=== PATIENT | male | born 1965 | race Caucasian/White ===

== ENCOUNTER 2016-08-24 19:03 | Emergency (ER) | payer MEDICAID ==
[~2016-08-24] VITALS: Ht 177.8 cm; Wt 108.9 kg
[~2016-08-24 19:03] MED LIST: COLCHICINE0.6 M1 PO; INDOMETHACIN75 MG ORAL; PREDNISONE5 M4 PO
--- NOTE | 2016-08-24 20:09 | Emergency Room Report ---
History of Present Illness General Chief Complaint: Pain Present Illness HPI 41-year-old male presents emergency department complaining of pain and swelling in the left knee x2 days. Patient describes pain in the medial aspect of the left knee it does not radiate rates his pain as 8/10 in severity, and describes that it feels similar to previous gout attack that he had an alternate knee. He denies false/trauma. She denies erythema, increased temperature palpation, fevers or chills. Pt states onset of pain was after going on a walk around the block. Denies numbness tingling or loss of sensation or gross motor movements of the extremities, incontinence of bowel or bladder. Denies CP, Palpitations, LOC, AMS, dizziness, Changes in Vision, Sensation, paresthesias, or a sudden severe headache. Allergies: Coded Allergies: No Known Allergies (Unverified , 06/28/16) Patient History Past Medical History: see triage record Past Surgical History: none Pertinent Family History: none Immunizations: UTD Reviewed Nursing Documentation: PMH: Agreed, PSxH: Agreed Nursing Documentation-PMH Hx Cardiac Problems: No - GOUT Review of Systems All Other Systems: negative except mentioned in HPI Physical Exam Vital Signs Date Time Temp Pulse Resp B/P Pulse Ox O2 Delivery O2 Flow Rate FiO2 08/24/16 19:29 98.4 92 16 125/81 96 Room Air Sp02 EP Interpretation: reviewed, normal General Appearance: no apparent distress, alert, GCS 15, non-toxic Head: normocephalic, atraumatic Eyes: bilateral eye PERRL, bilateral eye normal inspection ENT: hearing grossly normal, normal pharynx, no angioedema, normal voice Neck: full range of motion, supple/symm/no masses Respiratory: chest non-tender, lungs clear, normal breath sounds, speaking full sentences Cardiovascular #1: regular rate, rhythm, no edema Cardiovascular #2: 2+ radial (R), 2+ radial (L), 2+ dorsalis pedis (R), 2+ dorsalis pedis (L) Gastrointestinal: normal bowel sounds, non tender, soft, no guarding, no rebound Rectal: deferred Genitourinary: normal inspection, no CVA tenderness Musculoskeletal: back normal, gait/station normal, normal range of motion, non- tender, no calf tenderness, other - no increased laxity upon varus or valgus stressing, negative anterior and posterior drawer signs, no pulsatile mass palpated posteriorly Neurologic: alert, oriented x3, responsive, motor strength/tone normal, sensory intact, speech normal Psychiatric: judgement/insight normal, memory normal, mood/affect normal, no suicidal/homicidal ideation Reflexes: 4+ bicep (R), 4+ bicep (L), 4+ tricep (R), 4+ tricep (L), 4+ knee (R) , 4+ knee (L) Skin: normal color, no rash, warm/dry, well hydrated Lymphatic: no adenopathy Medical Decision Making PA Attestation Dr. Maynard is my supervising Physician whom patient management has been discussed with. Diagnostic Impression: Primary Impression: Gout attack Qualified Codes: M10.9 - Gout, unspecified ER Course Pt. presents to the ED c/o Pain and swelling of Left knee x 2 days - denies hx of trauma or fall, reports hx of gout, with previous similar presentation in the right knee, and previous attack in the right ankle. - Pt. prescribed indomethacin but reports he only had 2 pills left and pain has not subsided. Ddx considered but are not limited to cellulitis, Septic joint, pseudogout fracture, d/L, gout, sprain, ligamental injury Vital signs: are WNL, pt. is afebrile H&PE are most consistent with recurrent gout attack. ORDERS: none required at this time, the diagnosis is clinical ED INTERVENTIONS: -60mg IM Toradol - D/w pt. that if symptoms persist that ligamental injury may be the cause, and that would require outpatient imaging ordered by his PCP. DISCHARGE: At this time pt. is stable for d/c to home. Will provide printed patient care instructions, and any necessary prescriptions. Care plan and follow up instructions have been discussed with the patient prior to discharge. Last Vital Signs Date Time Temp Pulse Resp B/P Pulse Ox O2 Delivery O2 Flow Rate FiO2 08/24/16 19:29 98.4 92 16 125/81 96 Room Air Disposition: HOME, SELF-CARE Condition: Stable Scripts Methylprednisolone (MEDROL) 4 Mg Tab.ds.pk 4 MG PO DAILY, #1 PACK Prov: Kathryn Hahn P.Riya. 08/24/16 Ibuprofen* (MOTRIN*) 400 Mg Tablet 400 MG ORAL THREE TIMES A DAY, #30 TAB 0 Refills Prov: Kathryn Hahn 08/24/16 Prednisone* (PREDNISONE*) 20 Mg Tablet 40 MG ORAL DAILY for 5 Days, TAB Prov: Kathryn Hahn 08/24/16 Colchicine (Colchicine) 0.6 Mg Capsule 0.6 MG PO DAILY for 5 Days, #6 CAP Prov: Kathryn Hahn 08/24/16 Patient Instructions: Gout Additional Instructions: Take medications as directed. Follow up with PCP in 3-5 days Return sooner to ED if new symptoms occur, or current symptoms become worse. Kathryn Hahn Aug 24, 2016 20:09
[2016-08-24] MEDS ORDERED: COLCHICINE0.6 M1 PO (20:15)
[2016-08-24] MEDS ORDERED: Ketorolac 60mg Inj IM ONE (20:15)
[2016-08-24] MEDS ORDERED: PREDNISONE20 MG ORAL (20:15)
[2016-08-24] MEDS ORDERED: IBUPROFEN400 MG ORAL (20:15)
[2016-08-24] MEDS ORDERED: MEDROL4 M1 PO (20:29)
[2016-08-24 20:33] VITALS: BP 129/84
[2016-08-24 20:34] VITALS: BP 125/81
== END 2016-08-24 20:34 | disposition home or self-care (01) ==
LOC: EMR 20:20
DX: M10.9 Gout, unspecified (principal)
CPT/HCPCS: 96372; 99284

== ENCOUNTER 2017-06-19 17:02 | Emergency (ER) | payer MEDICAID ==
[~2017-06-19] VITALS: Ht 175.3 cm; Wt 108.0 kg
[~2017-06-19 17:02] MED LIST changes: +IBUPROFEN400 MG ORAL; +MEDROL4 M1 PO; +PREDNISONE20 MG ORAL
[2017-06-19 17:15] VITALS: BP 129/87
--- NOTE | 2017-06-19 17:20 | Emergency Room Report ---
History of Present Illness General Chief Complaint: Pain Source: Patient, Medical Record Present Illness HPI The patient is a 51-year-old male presenting for left foot pain. He states that this began 3 days prior described as a 9/10 sharp sensation and is worse with touch and movement. He states that he has a history of gout and this feels the same for him. Pain is primarily around the ankle and states he has had gout to this area before. He denies any injury to the area. He has tried indomethacin at home which has not helped. He states the Toradol usually helps. He denies any other symptoms including fever, chills, rash, calf pain, SOB, CP Allergies: Coded Allergies: No Known Allergies (Unverified , 06/28/16) Patient History Past Medical History: see triage record Pertinent Family History: none Reviewed Nursing Documentation: PMH: Agreed, PSxH: Agreed Nursing Documentation-PMH Past Medical History: No History, Except For Hx Cardiac Problems: No - GOUT Review of Systems All Other Systems: negative except mentioned in HPI Physical Exam Vital Signs Date Time Temp Pulse Resp B/P (MAP) Pulse Ox O2 Delivery O2 Flow Rate FiO2 06/19/17 17:04 97.9 93 18 129/87 95 Room Air Sp02 EP Interpretation: reviewed, normal General Appearance: no apparent distress, alert, GCS 15, non-toxic Head: normocephalic, atraumatic Eyes: bilateral eye normal inspection, bilateral eye PERRL ENT: hearing grossly normal, normal pharynx, no angioedema, normal voice Neck: full range of motion, supple/symm/no masses Musculoskeletal: back normal, gait/station normal, decreased range of motion - L ankle, swelling - L ankle, tender - L ankle to soft touch Neurologic: alert, oriented x3, responsive, motor strength/tone normal, sensory intact, speech normal Psychiatric: judgement/insight normal, memory normal, mood/affect normal, no suicidal/homicidal ideation Skin: normal color, no rash, warm/dry, well hydrated Lymphatic: no adenopathy Medical Decision Making PA Attestation Dr. Peralta is my supervising physician. Patient management was discussed with my supervising physician Diagnostic Impression: Primary Impression: Left ankle pain Qualified Codes: M25.572 - Pain in left ankle and joints of left foot ER Course The patient is a 51-year-old male presenting for left foot pain Ddx considered include but not limited to gout, septic arthritis, sprain/strain , fracture, contusion PE: Afebrile. NAD L ankle: minimal non pitting edema. Limited AROM. Tender with soft touch. No skin changes. No warmth Xray of ankle unremarkable The patient is given IM Toradol in the ER and will be discharged home with prescription for colchicine. He will followup with his primary doctor next week as discussed. ER precautions given Other X-Ray Diagnostic Results Other X-Ray Diagnostic Results : X-Ray ordered: L ankle # of Views/Limited Vs Complete: 3 View Indication: Pain EP Interpretation: Yes PA Xray: Interpretation reviewed, by supervising MD, and agrees with findings. Interpretation: no dislocation, no soft tissue swelling, no fractures Impression: No acute disease Electronically Signed by: LINDSEY Mccoy Scribe Text I have reviewed the xray with my supervising physician and interpretation is that there are no fractures, dislocations or soft tissue swelling. Last Vital Signs Date Time Temp Pulse Resp B/P (MAP) Pulse Ox O2 Delivery O2 Flow Rate FiO2 06/19/17 17:04 97.9 93 18 129/87 95 Room Air Status: improved Disposition: HOME, SELF-CARE Condition: Improved Scripts Colchicine (COLCRYS) 0.6 Mg Tablet 0.6 MG PO TID, #10 TAB Prov: TATO OATES 06/19/17 TATO OATES Jun 19, 2017 17:20
[2017-06-19] MEDS ORDERED: Ketorolac 30mg Inj IM ONE (17:45)
[2017-06-19] MEDS ORDERED: COLCRYS0.6 M1 PO (17:58)
[2017-06-19 18:01] VITALS: BP 129/87
--- NOTE | 2017-06-20 10:29 | Diagnostic Imaging Report ---
Indication: PAIN Technique: 3 views of the left ankle Comparison: none Findings: There is lateral malleolar soft tissue swelling. Joint spaces are preserved. No acute fractures. No dislocations Impression: Lateral soft tissue swelling. No acute bony trauma
== END 2017-06-19 18:05 | disposition home or self-care (01) ==
LOC: EMR 17:15
DX: M25.572 Pain in left ankle and joints of left foot (principal); M79.89 Other specified soft tissue disorders
CPT/HCPCS: 73610; 96372; 99283; J1885

== ENCOUNTER 2017-09-22 20:36 | Emergency (ER) | payer MEDICAID ==
[~2017-09-22] VITALS: Ht 175.3 cm; Wt 106.6 kg
[~2017-09-22 20:36] MED LIST changes: +COLCRYS0.6 M1 PO
[2017-09-22 21:05] VITALS: BP 120/78
[2017-09-22] MEDS ORDERED: TAMIFLU75 MG ORAL (21:07)
[2017-09-22 21:55] VITALS: BP 122/80
[2017-09-22 22:00] VITALS: BP 122/80
--- NOTE | 2017-09-23 00:02 | Emergency Room Report ---
History of Present Illness General Chief Complaint: Fever Source: Patient Present Illness HPI 52-year-old male presents with fever, chills, cough, runny nose for 1 day. Cough is productive with clear phlegm. Pt still eating/drinking well. +sick contacts. No recent travel. No SOB, cp, abdominal pain, n/v/d. Allergies: Coded Allergies: No Known Allergies (Unverified , 06/28/16) Patient History Past Medical History: see triage record Past Surgical History: none Pertinent Family History: none Reviewed Nursing Documentation: PMH: Agreed, PSxH: Agreed Nursing Documentation-PMH Hx Cardiac Problems: No - GOUT Review of Systems All Other Systems: negative except mentioned in HPI Physical Exam Vital Signs Date Time Temp Pulse Resp B/P (MAP) Pulse Ox O2 Delivery O2 Flow Rate FiO2 09/22/17 20:44 100.2 109 18 115/74 95 Room Air Sp02 EP Interpretation: reviewed, normal General Appearance: alert, GCS 15, non-toxic, mild distress Head: normocephalic, atraumatic Eyes: bilateral eye normal inspection, bilateral eye PERRL, bilateral eye EOMI ENT: normal ENT inspection, normal pharynx, normal voice, moist mucus membranes Neck: normal inspection, full range of motion, supple Respiratory: normal inspection, lungs clear, normal breath sounds, no respiratory distress, no retraction, no wheezing, speaking full sentences, chest symmetrical Cardiovascular #1: normal inspection, regular rate, rhythm, no edema, normal capillary refill Cardiovascular #2: 2+ radial (R), 2+ radial (L) Gastrointestinal: normal inspection, non tender, soft, non-distended, no guarding Genitourinary: no CVA tenderness Musculoskeletal: normal inspection, back normal, normal range of motion, non- tender Neurologic: normal inspection, alert, oriented x3, responsive, motor strength/ tone normal, sensory intact, normal gait, speech normal Psychiatric: normal inspection, judgement/insight normal, memory normal Skin: normal inspection, normal color, no rash, warm/dry, well hydrated, normal turgor Medical Decision Making Diagnostic Impression: Primary Impression: Influenza-like illness ER Course 52-year-old male p/w fever, chills, runny nose, cough Appears non- toxic, well hydrated, tolerating PO DDX: Likely viral URI Lungs are clear Plan: Tylenol ER course: Pt stable in ED, remains nontoxic appearing, no sob, ambulating around the emergency room Disposition: Patient discharged to home with Tamiflu Patient instructed to follow up with PMD in 1 week. Also instructed to take motrin/tylenol at home. Very strict return precautions discussed with patient such as intractable fever and chills, unable to eat or drink, severe chest pain or shortness of breath. Patient verbalized understanding and agrees with plan. Please note that this Emergency Department Report was dictated using [employer] coremaker technology software, occasionally this can lead to erroneous entry secondary to interpretation by the dictation equipment Last Vital Signs Date Time Temp Pulse Resp B/P (MAP) Pulse Ox O2 Delivery O2 Flow Rate FiO2 09/22/17 20:44 100.2 109 18 115/74 95 Room Air Disposition: HOME, SELF-CARE Condition: Improved Scripts Oseltamivir Phosphate (Tamiflu) 75 Mg Capsule 75 MG ORAL TWICE A DAY for 5 Days, #10 CAP 0 Refills Prov: Ludivina Red M.D. 09/22/17 Referrals: [facility],REFERRING (PCP) Patient Instructions: Viral Respiratory Infection, [id number] Ludivina Red M.D. Sep 23, 2017 00:02
== END 2017-09-22 22:00 | disposition home or self-care (01) ==
LOC: EMR 20:50
DX: J11.1 Influenza due to unidentified influenza virus with other respiratory manifestations (principal)
CPT/HCPCS: 99283

== ENCOUNTER 2017-09-30 09:39 | Emergency (ER) | payer MEDICAID ==
[~2017-09-30] VITALS: Ht 177.8 cm; Wt 108.9 kg
[~2017-09-30 09:39] MED LIST changes: +TAMIFLU75 MG ORAL
[2017-09-30 09:50] VITALS: BP 149/90
--- NOTE | 2017-09-30 10:06 | Emergency Room Report ---
History of Present Illness General Chief Complaint: Pain Source: Patient Present Illness HPI Patient presents with bilateral ankle pain. He states this is how his gout presents. Usually affects his knees but this time both ankles are involved. Denies any fevers or chills. The pain is 8-9/10, constant and worse when dependent. He has recently got over the flu and feels that this might have precipitated the attack. Drinks alcohol on occasion. Pain is burning and pressure. No fevers. The patient had difficulty tolerating Indocin colchicine and allopurinol and the past. He had an episode of dizziness after colchicine + indocin and was concerned that that this was due to colchicine. He drove himself here and is able to ambulate with difficulty. Allergies: Coded Allergies: No Known Allergies (Unverified , 06/28/16) Patient History Social History: Reports: alcohol use Social History Narrative Thomas Reviewed Nursing Documentation: PMH: Agreed, PSxH: Agreed Nursing Documentation-PMH Hx Cardiac Problems: No - GOUT Review of Systems All Other Systems: negative except mentioned in HPI Physical Exam Vital Signs Date Time Temp Pulse Resp B/P (MAP) Pulse Ox O2 Delivery O2 Flow Rate FiO2 09/30/17 09:41 97.7 78 20 149/90 99 Room Air Sp02 EP Interpretation: reviewed, normal General Appearance: well appearing, no apparent distress, GCS 15 Head: normocephalic, atraumatic Eyes: bilateral eye normal inspection, bilateral eye PERRL ENT: hearing grossly normal, normal voice Neck: full range of motion, supple Respiratory: no respiratory distress, speaking full sentences Cardiovascular #1: normal peripheral pulses Gastrointestinal: normal inspection Musculoskeletal: normal range of motion, no calf tenderness, inflammation - ankles, swelling Neurologic: alert, oriented x3, normal gait, grossly normal Psychiatric: mood/affect normal Skin: no rash, other - no erythema of ankles Medical Decision Making Diagnostic Impression: Primary Impression: Gout attack Qualified Codes: M10.9 - Gout, unspecified ER Course Patient with h/o gout with bilateral ankle pain. DDx: gout, pseudogout, cellulitis, other arthritis amongst others. Exam against cellulitis. Will treat empirically with toradol and colchicine. As driving, limited in what other meds can be given for pain. Improved with treatment. Patient stable for outpatient observation and treatment. Last Vital Signs Date Time Temp Pulse Resp B/P (MAP) Pulse Ox O2 Delivery O2 Flow Rate FiO2 09/30/17 10:51 97.7 87 20 149/90 99 Room Air Status: improved Disposition: HOME, SELF-CARE Condition: Improved Scripts Hydrocodone Bit/Acetaminophen 5-325* (NORCO 5-325*) 1 Each Tablet 1 TAB ORAL Q6H Y for For Pain, #16 TAB 0 Refills Prov: Edouard Arambula M.D. 09/30/17 Colchicine (Colchicine) 0.6 Mg Capsule 0.6 MG PO Q6HR Y for gout pain, #30 CAP Prov: Edouard Arambula M.D. 09/30/17 Indomethacin (INDOCIN) 25 Mg/5 Ml Oral.susp 50 MG PO TID Y for pain and inflammation, #20 ML 1 Refill Prov: Edouard Arambula M.D. 09/30/17 Referrals: [facility],REFERR[facility] (PCP) Edouard Arambula M.D. Sep 30, 2017 10:05
[2017-09-30] MEDS ORDERED: Ketorolac 60mg Inj IM ONE (10:15)
[2017-09-30 10:51] VITALS: BP 149/90
[2017-09-30] MEDS ORDERED: NORCO 5-325 TA1 EACH ORAL (11:04)
[2017-09-30] MEDS ORDERED: INDOCIN25 MG/5 ML PO (11:04)
[2017-09-30] MEDS ORDERED: COLCHICINE0.6 M1 PO (11:04)
== END 2017-09-30 11:15 | disposition home or self-care (01) ==
LOC: EMR 09:56
DX: M10.9 Gout, unspecified (principal)
CPT/HCPCS: 96372; 99284

== ENCOUNTER 2018-08-25 14:47 | Emergency (ER) | payer MEDICAID ==
[~2018-08-25] VITALS: Ht 175.3 cm; Wt 104.3 kg
[~2018-08-25 14:47] MED LIST changes: +INDOCIN25 MG/5 ML PO; +NORCO 5-325 TA1 EACH ORAL
[2018-08-25 15:03] VITALS: BP 112/65
--- NOTE | 2018-08-25 15:03 | NUR ---
ED Nurse Note: Pt came in from home due to coughing with congestion x 3-4 weeks, now also complains of body ache 5/10 justin. Will cont to monitor.
[2018-08-25] MEDS ORDERED: Acetaminophen 500mg (ES) tab ORAL ONE (15:30)
[2018-08-25] MEDS ORDERED: Benzonatate 100mg Perles ORAL ONE (15:30)
--- NOTE | 2018-08-25 15:31 | Emergency Room Report ---
History of Present Illness General Chief Complaint: Upper Respiratory Illness Source: Patient (Baldemar Ann) Present Illness HPI 53-year-old male patient presents the ER complaining of cough with sputum for the past 4 weeks. Reports sore throat during this time. Denies recent travel. Denies calf pain. Denies contacts with similar symptoms. Denies vomiting. Denies chest pain. Denies history of MD. Denies history of asthma. Denies smoking cigarettes. Denies fever, chest pain, shortness of breath. Reports cough is worse at night. States has been using ibuprofen, states has not taken any other medication for relief of symptoms. (Baldemar Ann) Allergies: Coded Allergies: No Known Allergies (Unverified , 06/28/16) Patient History Past Medical History: see triage record Reviewed Nursing Documentation: PMH: Agreed; PSxH: Agreed (Baldemar Ann) Nursing Documentation-PMH Past Medical History: No History, Except For Hx Cardiac Problems: No - GOUT, OSTEOARTHRITIS (Baldemar Ann) Review of Systems All Other Systems: negative except mentioned in HPI (Baldemar Ann) Physical Exam Vital Signs Date Time Temp Pulse Resp B/P (MAP) Pulse Ox O2 Delivery O2 Flow Rate FiO2 08/25/18 14:56 98.2 69 20 112/65 94 Room Air Sp02 EP Interpretation: reviewed, normal General Appearance: well appearing, no apparent distress, alert, GCS 15, non- toxic Head: normocephalic, atraumatic Eyes: bilateral eye normal inspection, bilateral eye PERRL ENT: hearing grossly normal, normal pharynx, no angioedema, normal voice, uvula midline, moist mucus membranes Neck: full range of motion Respiratory: lungs clear, normal breath sounds, no rhonchi, no respiratory distress, no accessory muscle use, no wheezing, speaking full sentences Cardiovascular #1: regular rate, rhythm, no edema Musculoskeletal: back normal, digits/nails normal, gait/station normal, normal range of motion, non-tender Neurologic: alert, oriented x3, responsive, motor strength/tone normal, sensory intact Psychiatric: mood/affect normal Skin: no rash (Baldemar Ann) Medical Decision Making PA Attestation Dr. Arambula is my supervising Physician whom patient management has been discussed with. (Baldemar Ann) Diagnostic Impression: Primary Impression: Atypical pneumonia ER Course Pt presents to ED c/o cough x1 month. DDX considered but are not limited to influenza, viral URI, pneumonia, strep throat, rhinitis, sinusitis, otitis media, otitis externa. VITAL SIGNS are WNL, patient is afebrile. ER COURSE: Provided with cough medication in the ER. Lungs clear to auscultation, no wheezes, rhonci or rales. patient afebrile. CXR shows no acute disease, no consolidation, however due to length of symptoms , will provide patient with antibiotics and treat for atypical pneumonia. Symptomatic treatment. drink plenty of fluids. Salt water gargles for sore throat. Followup with PCP for further treatment and/or referral as needed. ER precautions given. DISCHARGE: -Rx given for Azithromycin -Rx given for Tylenol/Acetaminophen -Rx given for Tessalon perle At this time pt is stable for d/c to home. Patient is resting comfortably, in no acute distress, nontoxic appearing. Patient to take medications as instructed Will provide with patient care instructions and any necessary prescriptions. Care plan and follow-up instructions provided. Patient instructed to follow-up with primary care provider in 3 - 5 days. Patient questions asked and answered. Patient reports understanding and agreement to treatment plan. ER precautions given. Patient instructed to return to ER immediately for any new or worsening of symptoms including but not limited to increasing SOB, persistent fever, intractable vomiting. - Please note that this Emergency Department Report was dictated using [employer] Like[employer]rical panel builder technology software, occasionally this can lead to erroneous entry secondary to interpretation by the dictation equipment. (Baldemar Ann.Yanick) Chest X-Ray Diagnostic Results Chest X-Ray Diagnostic Results : Chest X-Ray Ordered: Yes # of Views/Limited/Complete: 1 View Indication: Chest Pain EP Interpretation: Yes PA Xray: Interpretation reviewed, by supervising MD, and agrees with findings. Interpretation: no consolidation, no effusion, no pneumothorax, no acute cardiopulmonary disease Impression: No acute disease PA Scribe Text Ashish Ann PA-C (Baldemar [email or web address]) Chest X-Ray Diagnostic Results : Electronically Signed by: RIVERA documentation of Xray reviewed by me and is accurate, Edouard Arambula MD (Edouard Arambula MD) Last Vital Signs Date Time Temp Pulse Resp B/P (MAP) Pulse Ox O2 Delivery O2 Flow Rate FiO2 08/25/18 15:03 98.2 69 20 112/65 94 Room Air Status: improved (Baldemar Ann) Disposition: HOME, SELF-CARE Condition: Stable Scripts Benzonatate* (TESSALON PERLE*) 100 Mg Capsule 100 MG ORAL THREE TIMES A DAY, #20 PERLE Prov: Baldemar Ann 08/25/18 Acetaminophen* (TYLENOL EXTRA STRENGTH*) 500 Mg Tablet 500 MG ORAL Q8H PRN for Prn Headache/Temp > 101, #30 TAB 0 Refills Prov: Baldemar Ann 08/25/18 Azithromycin* (ZITHROMAX*) 250 Mg Tablet 250 MG ORAL DAILY, #6 TAB 0 Refills Take two tables once daily for 1 day, then one tablet once daily for 4 days. Prov: Baldemar Ann 08/25/18 Patient Instructions: Community-Acquired Pneumonia, Adult, [id number] Additional Instructions: Followup with primary care provider in 3 -5 days. Take medications as directed. Patient questions asked and answered. ER precautions given, patient instructed to return to ER immediately for any new or worsening of symptoms. Baldemar Ann Aug 25, 2018 15:31 Edouard Arambula MD Aug 27, 2018 05:33
--- NOTE | 2018-08-25 16:03 | Diagnostic Imaging Report ---
Indication: Chest pain Comparison: None A single view chest radiograph was obtained. Findings: Cardiomediastinal appearance is within normal limits for age. Hiatal hernia is suspected with a convex density noted medial left lung base. The lungs are clear. Pulmonary vascularity is appropriate. The diaphragmatic contour is smooth and costophrenic angles are sharp. No pleural effusions are identified. The bones are unremarkable. Impression: No acute findings
[2018-08-25] MEDS ORDERED: TESSALON PERLE100 MG ORAL (16:10)
[2018-08-25] MEDS ORDERED: ZITHROMAX250 MG ORAL (16:10)
[2018-08-25] MEDS ORDERED: TYLENOL EXTRA500 MG ORAL (16:10)
[2018-08-25 16:26] VITALS: BP 135/85
--- NOTE | 2018-08-25 16:27 | NUR ---
ED Nurse Note: Discharge instructions given to pt. Answered all questions. Verbalized understanding. A + O x4. Ambulatory. ID band and Iv site removed. Left with all belongings. Left ER w/ steady gait.
== END 2018-08-25 16:16 | disposition home or self-care (01) ==
LOC: EMR 16:03
DX: J18.9 Pneumonia, unspecified organism (principal)
CPT/HCPCS: 71045; 99283

== ENCOUNTER 2018-08-28 14:22 | Emergency (ER) | payer MEDICAID ==
[~2018-08-28] VITALS: Ht 175.3 cm; Wt 104.3 kg
[~2018-08-28 14:22] MED LIST changes: +TESSALON PERLE100 MG ORAL; +TYLENOL EXTRA500 MG ORAL; +ZITHROMAX250 MG ORAL
[2018-08-28 14:30] VITALS: BP 114/68
--- NOTE | 2018-08-28 14:40 | NUR ---
ED Nurse Note: Pt from home, a&ox4 and ambulatory. Pt c/o throat/ right neck/ right side of jaw pain /. VS taken and stable. Pt states he was here in ER a few days ago with diagnosis of PNA and has been compliant with his Z-pack antibiotics. Will contiue to monitor and carry out MD's orders.
--- NOTE | 2018-08-28 14:56 | Emergency Room Report ---
History of Present Illness General Chief Complaint: Upper Respiratory Illness Source: Patient Present Illness [facility] Patient re-presents to the emergency department while being treated for atypical pneumonia diagnosed 08/25. He's on a Z-Maninder at this time and doesn't feel any better. He still has a productive cough. This morning he also woke up with left jaw pain and neck pain. He didn't take any medicine to make the pain better, but he did take some aspirin worried about his heart. He is a former smoker. He has slight amount of diarrhea after taking the first double dose of azithromycin. This has gotten better. He denies any chest pain. The cough is keeping him awake at night. He states he's taking Tessalon Perles also doesn't have any specific cough medicine at this time. He's never used an inhaler before. The patient has a history of gout. A week ago he started taking colchicine. Also he has Indocin which he took in the beginning. No calf pain, edema rashes. The pain is improved. No headaches or anxiety. Allergies: Coded Allergies: No Known Allergies (Unverified , 06/28/16) Patient History Past Medical History: see triage record Social History: Reports: alcohol use - Not recent; Denies: smoking - Former Social History Narrative Unemployed Reviewed Nursing Documentation: PMH: Agreed; PSxH: Agreed Nursing Documentation-PMH Past Medical History: No History, Except For Hx Cardiac Problems: No - GOUT, OSTEOARTHRITIS Hx Hypertension: No Hx Pacemaker: No Hx Asthma: No Hx COPD: No Hx Diabetes: No Hx Cancer: No Hx Gastrointestinal Problems: No Hx Dialysis: No History Of Psychiatric Problem: No Hx Neurological Problems: No Hx Cerebrovascular Accident: No Hx Seizures: No Review of Systems All Other Systems: negative except mentioned in HPI Physical Exam Vital Signs Date Time Temp Pulse Resp B/P (MAP) Pulse Ox O2 Delivery O2 Flow Rate FiO2 08/28/18 14:29 97.9 87 16 118/77 97 Room Air Sp02 EP Interpretation: reviewed, normal General Appearance: well appearing, no apparent distress, GCS 15 Head: normocephalic Eyes: bilateral eye normal inspection, bilateral eye PERRL ENT: normal pharynx, moist mucus membranes, other - No TMJ Neck: supple Respiratory: chest non-tender, lungs clear, normal breath sounds, other - Posttussive wheezes Cardiovascular #1: regular rate, rhythm, no edema Cardiovascular #2: 2+ radial (R) Gastrointestinal: normal inspection, normal bowel sounds, non tender, no mass, non-distended, overweight Musculoskeletal: back normal, gait/station normal, normal range of motion, no calf tenderness Neurologic: alert, oriented x3, grossly normal Psychiatric: mood/affect normal Skin: normal inspection, warm/dry Medical Decision Making Diagnostic Impression: Primary Impression: Jaw pain Additional Impressions: Bronchospasm Bronchitis ER Course Patient presents with left jaw and neck pain while being treated for pneumonia. Differential includes a cardiac pain, pneumothorax, muscle strain from coughing, referred pain from lung infection amongst others. Based on vital signs and physical exam pulmonary embolus is unlikely. Evaluation will be with EKG, chest x-ray. The patient will be treated with albuterol and Atrovent and [place]. EKG without injury. Chest x-ray no infiltrates. Patient improved after breathing treatments. Discussed how to use inhaler. The jaw pain is still present but improved. The patient was advised to continue the azithromycin. Considerations for steroid use however the patient's improved at this time. Patient stable for outpatient observation and treatment EKG Diagnostic Results Rate: normal Rhythm: NSR ST Segments: no acute changes Rhythm Strip Diag. Results EP Interpretation: yes Rhythm: NSR, no PVC's, no ectopy Chest X-Ray Diagnostic Results Chest X-Ray Diagnostic Results : Chest X-Ray Ordered: Yes # of Views/Limited/Complete: 1 View Indication: Other Interpretation: no consolidation, no effusion, no pneumothorax Impression: No acute disease Electronically Signed by: Electronically signed by Edouard Arambula MD Last Vital Signs Date Time Temp Pulse Resp B/P (MAP) Pulse Ox O2 Delivery O2 Flow Rate FiO2 08/28/18 16:32 98.0 82 19 116/80 96 Room Air 08/28/18 16:24 21 Status: improved Disposition: HOME, SELF-CARE Condition: Improved Scripts Guaifenesin/Codeine Phos* (ROBITUSSIN AC*) 118 Ml Liquid 5 ML ORAL Q6H PRN for For Cough, #90 ML 0 Refills Prov: Edouard Arambula MD 08/28/18 Colchicine (Colchicine) 0.6 Mg Capsule 0.6 MG PO BID PRN for gout pain, #20 CAP Prov: Edouard Arambula MD 08/28/18 Albuterol Sulfate* (ALBUTEROL SULFATE MDI*) 8.5 Gm Hfa.aer.ad 2 PUFF INH Q6H, #1 EA 0 Refills Prov: Edouard Arambula MD 08/28/18 Edouard Arambula MD Aug 28, 2018 14:56
[2018-08-28] MEDS ORDERED: Albuterol ud Inhalation HHN ONE (15:00)
[2018-08-28] MEDS ORDERED: Ipratropium 0.02% Inh Soln 2.5ml UD HHN ONE (15:00)
[2018-08-28] MEDS ORDERED: Norco 5mg/325mg tab ORAL ONE (15:00)
--- NOTE | 2018-08-28 15:53 | Diagnostic Imaging Report ---
EXAM: XR Chest, 1 View CLINICAL HISTORY: PAIN TECHNIQUE: Frontal view of the chest. COMPARISON: Chest x-rays dated 4 08/25/18 FINDINGS: Lungs: Unremarkable. The lungs appear clear. No focal consolidation. Pleural space: Unremarkable. The costophrenic angles are sharp. No visible pneumothorax. Heart: Unremarkable. No cardiomegaly. Mediastinum: Possible small hiatal hernia. Bones/joints: Unremarkable. Tubes, lines and devices: EKG leads overlie the thorax. IMPRESSION: 1. Possible small hiatal hernia. 2. Otherwise no acute findings.
[2018-08-28] MEDS ORDERED: ALBUTEROL SULF8.5 GM INH (16:07)
[2018-08-28] MEDS ORDERED: COLCHICINE0.6 M1 PO (16:07)
[2018-08-28] MEDS ORDERED: GUAIFENESIN-CO118 M1 ORAL (16:07)
[2018-08-28 16:32] VITALS: BP 116/80
== END 2018-08-28 16:34 | disposition home or self-care (01) ==
LOC: EMR 15:13
DX: R68.84 Jaw pain (principal); J20.9 Acute bronchitis, unspecified; M54.2 Cervicalgia; M19.90 Unspecified osteoarthritis, unspecified site
CPT/HCPCS: 71045; 93005; 94640; 99284

== ENCOUNTER 2019-04-30 21:02 | Emergency (ER) | payer MEDICAID ==
[~2019-04-30] VITALS: Ht 175.3 cm; Wt 104.3 kg
[~2019-04-30 21:02] MED LIST changes: +ALBUTEROL SULF8.5 GM INH; +GUAIFENESIN-CO118 M1 ORAL
[2019-04-30 21:08] VITALS: BP 111/66
--- NOTE | 2019-04-30 21:10 | NUR ---
ED Nurse Note: Pt ambulated to ED from home c/o two small bug bites on stomach that burn and itch since 2 days ago. Pt also reports dizziness and near syncope earlier today, VSS, A&Ox4
--- NOTE | 2019-04-30 21:26 | Emergency Room Report ---
History of Present Illness General Chief Complaint: Skin Rash/Abscess Source: Patient Present Illness HPI The patient presents with 2 problems. The main complaint initially was about possible spider bites on his abdomen. They have spiders at their house. He is not sure when his last tetanus was. They are itching and. They are not tender. He denies any fevers or chills. The second problem is that he took a hit off of cannabis vape stick at dinner. He felt dizziness and that he was about to pass out. He is feeling somewhat better now. He is never had a reaction like that before. He had some shortness of breath during that time. There is no chest pain or palpitations. Denies nausea, vomiting or diarrhea. He denies any diabetes, hypertension. Also denies smoking. Allergies: Coded Allergies: No Known Allergies (Unverified , 06/28/16) Patient History Past Medical History: see triage record Social History: Reports: drug use; Denies: smoking Social History Narrative With significant other Reviewed Nursing Documentation: PMH: Agreed; PSxH: Agreed Nursing Documentation-PMH Past Medical History: No History, Except For Hx Cardiac Problems: No - GOUT, OSTEOARTHRITIS Hx Hypertension: No Hx Pacemaker: No Hx Asthma: No Hx COPD: No Hx Diabetes: No Hx Cancer: No Hx Gastrointestinal Problems: No Hx Dialysis: No Hx Neurological Problems: No Hx Cerebrovascular Accident: No Hx Seizures: No Review of Systems All Other Systems: negative except mentioned in HPI Physical Exam Vital Signs Date Time Temp Pulse Resp B/P (MAP) Pulse Ox O2 Delivery O2 Flow Rate FiO2 04/30/19 21:05 97.7 97 18 111/66 (81) 95 Room Air Sp02 EP Interpretation: reviewed, normal General Appearance: well appearing, no apparent distress, GCS 15 Head: normocephalic Eyes: bilateral eye PERRL, bilateral eye Scleral Injection ENT: moist mucus membranes Neck: supple Respiratory: chest non-tender, lungs clear, normal breath sounds Cardiovascular #1: regular rate, rhythm Cardiovascular #2: 2+ radial (R) Gastrointestinal: normal inspection, normal bowel sounds, non tender, no mass, non-distended, overweight Musculoskeletal: back normal, gait/station normal, normal range of motion Neurologic: alert, oriented x3, bread slicer machine III-XII nml as tested, motor strength/tone normal, sensory intact, cerebellar normal, normal gait, speech normal Psychiatric: mood/affect normal Skin: other - 2 raised lesions L mid abdomen with minimal erythema Medical Decision Making Diagnostic Impression: Primary Impression: Near syncope Additional Impressions: Bug bite Qualified Codes: W57.XXXA - Bitten or stung by nonvenomous insect and other nonvenomous arthropods, initial encounter Dehydration Adverse reaction to cannabis Qualified Codes: T40.7X5A - Adverse effect of cannabis (derivatives), initial encounter ER Course Presents with 2 problems. 1 is spider bites on his abdomen. There is no evidence of cellulitis. The second is a reaction to cannabis vapor stick. As he almost passed out the patient needs to have an EKG and a chest x-ray performed particular light of the fact that there is some adverse reactions to the cannabis sticks at this time. His risk factors cardiac umana are nil. EKG normal. CXR normal. Orthostatic performed. Some increase in pulse with minimal low BP. Advised patient of dehydration being a factor. He feels well at this time and there is no apparent medical emergency at this time. Discussed local treatment of spider bites. Also cautioned about using vape sticks. Patient stable for outpatient observation and treatment. EKG Diagnostic Results Rate: normal Rhythm: NSR ST Segments: no acute changes Rhythm Strip Diag. Results EP Interpretation: yes Rhythm: NSR, no PVC's, no ectopy Chest X-Ray Diagnostic Results Chest X-Ray Diagnostic Results : Chest X-Ray Ordered: Yes # of Views/Limited/Complete: 1 View Indication: Other EP Interpretation: Yes Interpretation: no consolidation, no effusion, no pneumothorax Impression: No acute disease Electronically Signed by: Electronically signed by Edouard Arambula MD Last Vital Signs Date Time Temp Pulse Resp B/P (MAP) Pulse Ox O2 Delivery O2 Flow Rate FiO2 04/30/19 22:40 97.7 80 18 111/66 95 Room Air Status: improved Disposition: HOME, SELF-CARE Condition: Improved Scripts Hydrocortisone/Aloe Vera 1%* (HYDROCORTISONE-ALOE 1% CREAM*) Y Cr 1 APPLIC TOPIC BID PRN for Itching, #20 GM Prov: Edouard Arambula MD 04/30/19 Bacitracin (Bacitracin) 28.4 Gm Oint...g. 1 APPLIC TOPIC BID, #14 GM Prov: Edouard Arambula MD 04/30/19 Edouard Arambula MD Apr 30, 2019 21:26
[2019-04-30] MEDS ORDERED: Neosporin Oint Ud Pkt TOPIC ONE (21:30)
[2019-04-30] MEDS ORDERED: Tetanus/Diptheria/Pertussis IM ONE (21:30)
[2019-04-30 21:45] VITALS: BP_SYST 103; BP_SYST 93; BP_SYST 95; BP_DIAS 58; BP_DIAS 62; BP_DIAS 68
[2019-04-30] MEDS ORDERED: BACITRACIN15 GM TOPIC (22:13)
[2019-04-30] MEDS ORDERED: HYDROCORTISONE-30 GM TOPIC (22:13)
--- NOTE | 2019-04-30 22:20 | Diagnostic Imaging Report ---
EXAM: XR Chest, 1 View CLINICAL HISTORY: SYNCOPE TECHNIQUE: Frontal view of the chest. COMPARISON: 08/28/18 chest radiography FINDINGS: Lungs: Unremarkable. No consolidation. Pleural space: Unremarkable. No pneumothorax. Heart: Unremarkable. No cardiomegaly. Mediastinum: Hiatal hernia suspected. Bones/joints: Unremarkable. IMPRESSION: No acute cardiopulmonary disease.
[2019-04-30 22:40] VITALS: BP 111/66
--- NOTE | 2019-04-30 22:40 | NUR ---
ED Discharge Note: PRESCRIPTIONS AND DISCHARGE PAPERWORK EXPLAINED TO PT. PT VERBALIZES UNDERSTANDING AND ALL QUESTIONS ANSWERED. PRESCRIPTIONS AND DISCHARGE PAPERWORK GIVEN TO PT AND ID WRISTBAND REMOVED. PT WALKED OUT OF ER WITH STEADY GAIT AND ALL BELONGINGS
--- NOTE | 2019-05-01 15:15 | Cardiology Report ---
APPROVED REPORT EKG Measurement Heart [id number] Normal sinus rhythm Normal ECG
== END 2019-04-30 22:40 | disposition home or self-care (01) ==
LOC: EMR 21:39
DX: S30.861A Insect bite (nonvenomous) of abdominal wall, initial encounter (principal); T40.7X5A Adverse effect of cannabis (derivatives), initial encounter; R55 Syncope and collapse; E86.0 Dehydration; Z23 Encounter for immunization; M19.90 Unspecified osteoarthritis, unspecified site; M10.9 Gout, unspecified; W57.XXXA Bitten or stung by nonvenomous insect and other nonvenomous arthropods, initial encounter; Y92.9 Unspecified place or not applicable
CPT/HCPCS: 71045; 90471; 90715; 93005; 99283

== ENCOUNTER 2019-06-10 09:44 | Emergency (ER) | payer MEDICAID ==
[~2019-06-10] VITALS: Ht 175.3 cm; Wt 104.3 kg
[~2019-06-10 09:44] MED LIST changes: +BACITRACIN15 GM TOPIC; +CIPRO500 MG PO; +HYDROCODON-ACE1 EA15 ORAL; +HYDROCORTISONE-30 GM TOPIC
--- NOTE | 2019-06-10 09:57 | NUR ---
ED Nurse Note: Patient walked in ED from home. AOx4, no respiratory distress noted on room air. C/o gout flare up with left knee pain 10/. Pt noted to be in crutches. States he was prescribed prednisone 40mg but no relief. Pt also states he is taking ciprofloxacin orally for diverticulitis. ERMD at bedside.
[2019-06-10 10:01] VITALS: BP 120/84
--- NOTE | 2019-06-10 10:15 | NUR ---
ED Nurse Note: Pt placed on hospital gown. No visible swelling/redness noted on left knee. IV insertion tolerated, blood drawn and sent down to lab. Will continue to monitor.
--- NOTE | 2019-06-10 10:25 | Emergency Room Report ---
History of Present Illness General Chief Complaint: Pain Source: Patient, Medical Record Present Illness HPI Patient presents with left knee pain. He has a history of gout. He is been off of indomethacin. He is also been taking antibiotics. Antibiotics were for treatment of diverticulitis. He has 1 more day of antibiotics. He was evaluated 2 days ago and given [place] but no other medication. He was advised not to take indomethacin because he was taking antibiotics. The knee is not swollen the pain is more medial. He does not think he twisted it. It feels like his gout is out of control. In the past taking steroids his helped him and give him great relief. He rates the pain 10/10, aching and pressure. Is not radiating. It somewhat worse when he stands on the knee. He has been using crutches. He states that in the past when he was taking allopurinol the gout has worsened. He states the diverticulitis is improved and not a problem at this time. Patient evaluated recently for near syncope. No sore throat, chest pain, palpitations, nausea, vomiting, diarrhea, dysuria, shortness of breath, rashes, depression, anxiety, visual changes, headache. Allergies: Coded Allergies: No Known Allergies (Unverified , 06/28/16) Patient History Past Medical History: see triage record Social History: Reports: drug use; Denies: smoking Social History Narrative From home Reviewed Nursing Documentation: PMH: Agreed; PSxH: Agreed Nursing Documentation-PMH Past Medical History: No History, Except For Hx Cardiac Problems: No - GOUT, OSTEOARTHRITIS, DIVERTICULITIS Hx Hypertension: No Hx Pacemaker: No Hx Asthma: No Hx COPD: No Hx Diabetes: No Hx Cancer: No Hx Gastrointestinal Problems: No Hx Dialysis: No Hx Neurological Problems: No Hx Cerebrovascular Accident: No Hx Seizures: No Review of Systems All Other Systems: negative except mentioned in HPI Physical Exam Vital Signs Date Time Temp Pulse Resp B/P (MAP) Pulse Ox O2 Delivery O2 Flow Rate FiO2 06/10/19 09:48 97.7 86 18 120/84 (96) 96 Room Air Sp02 EP Interpretation: reviewed, normal General Appearance: well appearing, no apparent distress, GCS 15 Head: normocephalic Eyes: bilateral eye normal inspection, bilateral eye PERRL ENT: moist mucus membranes Neck: full range of motion, supple Respiratory: chest non-tender, lungs clear, normal breath sounds Cardiovascular #1: regular rate, rhythm Gastrointestinal: normal inspection, non tender Genitourinary: no CVA tenderness Musculoskeletal: tenderness - Medial left knee, ligaments stable, minimal to no effusion, no warmth or erythema Neurologic: alert, oriented x3, grossly normal Psychiatric: mood/affect normal Skin: normal color, no rash, warm/dry Medical Decision Making Diagnostic Impression: Primary Impression: Left knee pain Qualified Codes: M25.562 - Pain in left knee Additional Impression: Gout Qualified Codes: M10.9 - Gout, unspecified ER Course Patient presents with increased left knee pain with history of gout. Differential includes gout, pseudogout, sprain amongst others. Clinically there is no infection in the knee. X-rays are not indicated at this time. The patient will be evaluated with labs and given a dose of colchicine. We may treat him with methylprednisolone also. Labs unremarkable with normal uric acid. Patient given a dose of Solu-Medrol as pain was still present. Discussed results with patient. Discussed the need for outpatient follow-up with his physicians. Pain resolved with Solu-Medrol. Patient stable for outpatient observation and treatment. Laboratory Tests Test 06/10/19 10:10 White Blood Count 9.5 K/UL (4.8-10.8) Red Blood Count 4.67 M/UL (4.70-6.10) L Hemoglobin 14.2 G/DL (14.2-18.0) Hematocrit 41.4 % (42.0-52.0) L Mean Corpuscular Volume 89 FL (80-99) Mean Corpuscular Hemoglobin 30.4 PG (27.0-31.0) Mean Corpuscular Hemoglobin Concent 34.2 G/DL (32.0-36.0) Red Cell Distribution Width 11.9 % (11.6-14.8) Platelet Count 465 K/UL (150-450) H Mean Platelet Volume 5.2 FL (6.5-10.1) L Neutrophils (%) (Auto) 73.3 % (45.0-75.0) Lymphocytes (%) (Auto) 20.8 % (20.0-45.0) Monocytes (%) (Auto) 4.4 % (1.0-10.0) Eosinophils (%) (Auto) 0.4 % (0.0-3.0) Basophils (%) (Auto) 1.1 % (0.0-2.0) Sodium Level 141 MMOL/L (136-145) Potassium Level 3.7 MMOL/L (3.5-5.1) Chloride Level 104 MMOL/L (98-107) Carbon Dioxide Level 29 MMOL/L (21-32) Anion Gap 8 mmol/L (5-15) Blood Urea Nitrogen 14 mg/dL (7-18) Creatinine 0.9 MG/DL (0.55-1.30) Estimate Glomerular Filtration Rate > 60 mL/min (>60) Glucose Level 128 MG/DL (74-106) H Uric Acid 6.3 MG/DL (2.6-7.2) Calcium Level 9.7 MG/DL (8.5-10.1) Total Bilirubin 0.2 MG/DL (0.2-1.0) Aspartate Amino Transferase (AST) 10 U/L (15-37) L Alanine Aminotransferase (ALT) 34 U/L (12-78) Alkaline Phosphatase 64 U/L (46-116) Total Protein 8.0 G/DL (6.4-8.2) Albumin 3.9 G/DL (3.4-5.0) Globulin 4.1 g/dL Albumin/Globulin Ratio 1.0 (1.0-2.7) Last Vital Signs Date Time Temp Pulse Resp B/P (MAP) Pulse Ox O2 Delivery O2 Flow Rate FiO2 06/10/19 14:20 98.1 84 18 128/88 98 Room Air Status: improved Disposition: HOME, SELF-CARE Condition: Improved Scripts Colchicine (Colchicine) 0.6 Mg Capsule 0.6 MG PO BID, #20 CAP Prov: Edouard Arambula MD 06/10/19 Methylprednisolone (Methylprednisolone*) 4MG Dspk 4 MG ORAL DIRECTED for 6 Days, #21 EA 0 Refills Day 1: Two tablets before breakfast, one after lunch, one after dinner, and two at bedtime. If started late in the day, take all six tablets at once or divide into two or three doses, unless otherwise directed by prescriber. Day 2: One tablet before breakfast, one after lunch, one after dinner, and two at bedtime Day 3: One tablet before breakfast, one after lunch, one after dinner, and one at bedtime Day 4: One tablet before breakfast, one after lunch, and one at bedtime Day 5: One tablet before breakfast and one at bedtime Day 6: One tablet before breakfast Prov: Edouard Arambula MD 06/10/19 Referrals: NON PHYSICIAN (PCP) Edouard Arambula MD Jun 10, 2019 10:25
[2019-06-10 10:27] LABS: BASOPHILS % (AUTO) 1.1 % (0.0-2.0); EOSINOPHILS % (AUTO) 0.4 % (0.0-3.0); HEMATOCRIT 41.4 % (42.0-52.0); HEMOGLOBIN 14.2 G/DL (14.2-18.0); LYMPHOCYTES % (AUTO) 20.8 % (20.0-45.0); MEAN CORPUSCULAR VOLUME 89 FL (80-99); MONOCYTES % (AUTO) 4.4 % (1.0-10.0); NEUTROPHILS % (AUTO) 73.3 % (45.0-75.0); PLATELET COUNT 465 K/UL (150-450); RED BLOOD COUNT 4.67 M/UL (4.70-6.10); RED CELL DISTRIBUTION WIDTH 11.9 % (11.6-14.8); WHITE BLOOD COUNT 9.5 K/UL (4.8-10.8)
[2019-06-10 10:39] LABS: ANION GAP 8 mmol/L (5-15); BLOOD UREA NITROGEN 14 mg/dL (7-18); CALCIUM 9.7 MG/DL (8.5-10.1); CARBON DIOXIDE 29 MMOL/L (21-32); CHLORIDE 104 MMOL/L (98-107); CREATININE 0.9 MG/DL (0.55-1.30); POTASSIUM 3.7 MMOL/L (3.5-5.1); SODIUM 141 MMOL/L (136-145)
[2019-06-10 10:43] LABS: ALANINE AMINOTRANSFERASE 34 U/L (12-78); ALBUMIN 3.9 G/DL (3.4-5.0); ALKALINE PHOSPHATASE 64 U/L (46-116); ASPARTATE AMINO TRANSFERASE 10 U/L (15-37); BILIRUBIN,TOTAL 0.2 MG/DL (0.2-1.0)
[2019-06-10 11:37] VITALS: BP 131/89
[2019-06-10] MEDS ORDERED: Solu-MEDROL 125mg Inj IVP ONE (11:45)
[2019-06-10] MEDS ORDERED: COLCHICINE0.6 M1 PO (12:47)
[2019-06-10] MEDS ORDERED: MEDROL DOSEPAK4 MG ORAL (12:47)
--- NOTE | 2019-06-10 12:55 | NUR ---
ER DISCHARGE NOTE: Patient is cleared to be discharged per ERMD, pt is aox4, on room air, with stable vital signs. pt was given dc and prescription instructions, pt was able to verbalize understanding, pt id band and iv site removed without complications. pt is able to ambulate with crutches. pt took all belongings.
[2019-06-10 14:20] VITALS: BP 128/88
== END 2019-06-10 12:55 | disposition home or self-care (01) ==
LOC: EMR 10:19
DX: M25.562 Pain in left knee (principal); M10.9 Gout, unspecified; M19.90 Unspecified osteoarthritis, unspecified site; K57.92 Diverticulitis of intestine, part unspecified, without perforation or abscess without bleeding
CPT/HCPCS: 36415; 80053; 84550; 85025; 96374; J2930; Z7502; 99284

== ENCOUNTER 2019-08-07 10:44 | Emergency (ER) | payer MEDICAID ==
[~2019-08-07] VITALS: Ht 175.3 cm; Wt 99.8 kg
[~2019-08-07 10:44] MED LIST changes: +MEDROL DOSEPAK4 MG ORAL
[2019-08-07] MEDS ORDERED: CEFDINIR300 MG PO (11:00)
[2019-08-07] MEDS ORDERED: METRONIDAZOLE500 MG ORAL (11:00)
[2019-08-07] MEDS ORDERED: Hydromorphone 0.5mg/0.5ml inj IM ONE (11:15)
[2019-08-07] MEDS ORDERED: Ketorolac 30mg Inj IM ONE (11:15)
[2019-08-07] MEDS ORDERED: Acetaminophen 500mg (ES) tab ORAL ONE (11:15)
[2019-08-07] MEDS ORDERED: NORCO 5-325 TA1 EACH ORAL (11:19)
[2019-08-07] MEDS ORDERED: PREDNISONE50 MG ORAL (11:19)
--- NOTE | 2019-08-07 11:19 | Emergency Room Report ---
History of Present Illness General Chief Complaint: Pain Source: Patient Present Illness HPI 54-year-old male history of gout, recent diagnosis of diverticulitis since 4 days prior to arrival, reports bilateral knee swelling, warmth, worsened with movement alleviated with rest severity is moderate, constant, patient states that he is not allowed to take his indomethacin he stopped taking his indomethacin on Thursday due to being diagnosed with diverticulitis he is currently taking Flagyl and Cipro, denies any fever/chills, patient reports his gout is flared up. Patient presents for evaluation Allergies: Coded Allergies: No Known Allergies (Unverified , 06/28/16) Patient History Past Medical History: see triage record Reviewed Nursing Documentation: PMH: Agreed; PSxH: Agreed Nursing Documentation-PMH Past Medical History: No History, Except For Hx Cardiac Problems: No - GOUT, OSTEOARTHRITIS, DIVERTICULITIS Hx Hypertension: No Hx Pacemaker: No Hx Asthma: No Hx COPD: No Hx Diabetes: No Hx Cancer: No Hx Gastrointestinal Problems: No Hx Dialysis: No Hx Neurological Problems: No Hx Cerebrovascular Accident: No Hx Seizures: No Review of Systems All Other Systems: negative except mentioned in HPI Physical Exam Vital Signs Date Time Temp Pulse Resp B/P (MAP) Pulse Ox O2 Delivery O2 Flow Rate FiO2 08/07/19 10:54 98.2 102 20 127/84 (98) 95 Room Air General Appearance: well appearing, no apparent distress Head: normocephalic, atraumatic ENT: hearing grossly normal, normal voice Neck: full range of motion, supple Respiratory: no respiratory distress, speaking full sentences Musculoskeletal: other - Bilateral knee swelling no redness, range of motion intact, strength intact, warmth felt bilaterally, swelling is mild Neurologic: alert, normal gait Psychiatric: mood/affect normal Skin: no rash Medical Decision Making Diagnostic Impression: Primary Impression: Gout flare Qualified Codes: M10.9 - Gout, unspecified ER Course 54-year-old male presents with bilateral knee swelling patient reports that he has been unable to take his indomethacin, or his colchicine, patient with recurrence of gout, low suspicion for septic arthritis, low suspicion for knee contusion Will provide patient with steroids, as well as pain medication Cures report was ran Pain well controlled disposition home with return cautions Last Vital Signs Date Time Temp Pulse Resp B/P (MAP) Pulse Ox O2 Delivery O2 Flow Rate FiO2 08/07/19 10:54 98.2 102 20 127/84 (98) 95 Room Air Disposition: HOME, SELF-CARE Condition: Stable Scripts Prednisone* (PREDNISONE*) 50 Mg Tablet 50 MG ORAL DAILY, #4 TAB 0 Refills Prov: Mingo Garcia MD 08/07/19 Hydrocodone Bit/Acetaminophen 5-325* (NORCO 5-325*) 1 Each Tablet 1 TAB ORAL Q8HR PRN for For Pain, #12 TAB 0 Refills Prov: Mingo Garcia MD 08/07/19 Referrals: [facility] L[facility] Patient Instructions: Gout, [id number] Additional Instructions: The patient was provided with discharge instructions, notified to follow-up with a primary care doctor and or specialist in the next 24-48 hours, and to return to the ED if they have worsening of their symptoms. Please note that this report is being documented using DRAGON technology. This can lead to erroneous entry secondary to incorrect interpretation by the dictating instrument. Mingo Garcia MD Aug 07, 2019 11:19
[2019-08-07 11:30] VITALS: BP 127/84
--- NOTE | 2019-08-07 11:30 | NUR ---
ED Nurse Note:pt. received pain meds
[2019-08-07 11:52] VITALS: BP 127/84
--- NOTE | 2019-08-07 11:55 | NUR ---
ER DISCHARGE NOTE: Patient is cleared to be discharged per ERMD, pt is aox4, on room air, with stable vital signs. pt was given dc and prescription instructions, pt was able to verbalize understanding, pt is able to ambulate with steady gait. pt took all belongings.
== END 2019-08-07 12:05 | disposition home or self-care (01) ==
LOC: EMR 11:40
DX: M10.9 Gout, unspecified (principal); M19.90 Unspecified osteoarthritis, unspecified site
CPT/HCPCS: 96372; J1170; J1885; J8540; Z7502; 99283

== ENCOUNTER 2019-08-10 13:27 | Outpatient (CLI) | payer MEDICAID ==
[~2019-08-10 13:27] MED LIST changes: +CEFDINIR300 MG PO; +METRONIDAZOLE500 MG ORAL; +PREDNISONE50 MG ORAL
[2019-08-10 13:40] VITALS: BP 114/84
--- NOTE | 2019-08-10 19:00 | Consultation ---
DATE OF CONSULTATION: 08/10/2019 GASTROENTEROLOGY CONSULTATION CONSULTING PHYSICIAN: Phani Pedroza M.D. CHIEF COMPLAINT: Abdominal pain. PAST MEDICAL HISTORY: 1. Diverticulitis. 2. Depression. 3. Gout. PAST SURGICAL HISTORY: Umbilical hernia repair. MEDICATIONS: Please see medication reconciliation list. ALLERIGES: No known drug allergies. FAMILY HISTORY: No family history of GI malignancies. SOCIAL HISTORY: The patient denies any alcohol, but smokes about half a pack per day. REVIEW OF SYSTEMS: Positive for abdominal pain, constipation, bloating. PHYSICAL EXAMINATION: VITAL SIGNS: Temperature 97.5, blood pressure 114/84, pulse is 109, respirations 20. HEENT: Normocephalic and atraumatic. Sclerae anicteric. NECK: Supple. No evidence of obvious lymphadenopathy. CARDIOVASCULAR: Regular rate and rhythm. Plus S1 and S2. No obvious murmur. LUNGS: Clear to auscultation bilaterally. ABDOMEN: Positive bowel sounds. Soft left lower quadrant. No guarding, but some minimum rebound. EXTREMITIES: No cyanosis. No clubbing. No edema. ASSESSMENT AND PLAN: This is [id number] male with acute diverticulitis content antibiotics. Cefepime and Flagyl and still having pain, soap drier tender and still tachycardic. So, the patient to go to the emergency room. The patient will need to be admitted for IV antibiotics given 10 days of and possibly needs to be evaluated by a surgeon. The patient was told to go to the [facility] emergency room for admission. Dictation. Phani Pedroza M.D. DR: MAXINE JOB#: [id number] CC:
== END 2019-08-10 15:40 | disposition home or self-care (01) ==
LOC: PAN 13:27
DX: R10.9 Unspecified abdominal pain (principal); F32.9 Major depressive disorder, single episode, unspecified; K59.00 Constipation, unspecified; R14.0 Abdominal distension (gaseous); K57.92 Diverticulitis of intestine, part unspecified, without perforation or abscess without bleeding; R00.0 Tachycardia, unspecified
CPT/HCPCS: G0463

== ENCOUNTER 2020-01-06 11:47 | Emergency (ER) | payer MEDICAID ==
[~2020-01-06] VITALS: Ht 175.3 cm; Wt 90.7 kg
[~2020-01-06 11:47] MED LIST changes: +NAPROXEN250 MG ORAL; +OXYCODONE HCL5 M2 ORAL
--- NOTE | 2020-01-06 12:00 | NUR ---
Note rené in EDM - 01/06/20 at 1201 by REHAN ED Nurse Note: Pt walked into ED w/ c/o bilateral pain in knees and ankles. Pt has history of gout for 20 years. Pt is alert and orientedx4, ambulatroy
--- NOTE | 2020-01-06 12:01 | NUR ---
ED Nurse Note: Pt walked into ED w/ c/o bilateral pain in knees and ankles. Pt has history of gout for 20 years. Pt is alert and orientedx4, ambulatory. Pt knees are red and swollen. Pt takes Endomethicin 15mg Qday, btu not helping.
[2020-01-06 12:04] VITALS: BP 137/79
[2020-01-06] MEDS ORDERED: HYDROcodone/Acetamin 5/325 tab ORAL ONE (13:45)
--- NOTE | 2020-01-06 13:57 | Emergency Room Report ---
History of Present Illness General Chief Complaint: Pain Source: Patient Present Illness HPI 54 YO w. gout flare. reports taking indomethacin 50mg BID with no relief. Pt. reports when it is this bad usually requires corticosteroids as well. Pt. denies trauma or fall. He denies erythema but reports swelling and warmth. Pt. reports current symptoms are c/w gout flares he has experienced in the past. Pt. denies fevers or chills. Denies recent open wounds. Pt denies hx of immune compromise. Denies numbness tingling or loss of sensation or gross motor movements of the extremities, incontinence of bowel or bladder. Denies CP, Palpitations, LOC, AMS, dizziness, Changes in Vision, weakness or a sudden severe headache. 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 Patient History Past Medical History: see triage record, other - gout and OA Past Surgical History: none Pertinent Family History: none Reviewed Nursing Documentation: PMH: Agreed; PSxH: Agreed Nursing Documentation-PMH Past Medical History: No History, Except For Hx Cardiac Problems: No Hx Hypertension: No Hx Pacemaker: No Hx Asthma: No Hx COPD: No Hx Diabetes: No Hx Cancer: No Hx Gastrointestinal Problems: Yes - sigmoidectomy 08/26/2019, diverticulitis, gout, arthritis Hx Dialysis: No Hx Neurological Problems: No Hx Cerebrovascular Accident: No Hx Seizures: No Review of Systems All Other Systems: negative except mentioned in HPI Physical Exam Vital Signs Date Time Temp Pulse Resp B/P (MAP) Pulse Ox O2 Delivery O2 Flow Rate FiO2 01/06/20 11:52 98.2 101 20 146/80 (102) 96 Room Air Sp02 EP Interpretation: reviewed, normal General Appearance: no apparent distress, alert, GCS 15, non-toxic Head: normocephalic, atraumatic Eyes: bilateral eye normal inspection, bilateral eye PERRL ENT: hearing grossly normal, normal voice Neck: full range of motion Respiratory: chest non-tender, lungs clear, normal breath sounds, speaking full sentences Cardiovascular #1: regular rate, rhythm, no edema, normal capillary refill Musculoskeletal: normal range of motion, gait/station normal, tender - significantly to the left knee. Mild tenderness to moderate palpation of the left ankle, right knee, and right ankle. No calf tenderness. No calf swelling. , swelling - Left knee > right knee, Neurologic: alert, motor strength/tone normal, oriented x3, sensory intact, responsive, speech normal Psychiatric: judgement/insight normal Medical Decision Making PA Attestation Dr. Araya Is my supervising Physician whom patient management has been discussed with. Diagnostic Impression: Primary Impression: Gout attack Qualified Codes: M10.9 - Gout, unspecified ER Course 54 YO w. gout flare. reports taking indomethacin 50mg BID with no relief. Pt. reports when it is this bad usually requires corticosteroids as well. Pt. denies trauma or fall. He denies erythema but reports swelling and warmth. Pt. reports current symptoms are c/w gout flares he has experienced in the past. Pt. denies fevers or chills. Denies recent open wounds. Pt denies hx of immune compromise. Denies numbness tingling or loss of sensation or gross motor movements of the extremities, incontinence of bowel or bladder. Denies CP, Palpitations, LOC, AMS, dizziness, Changes in Vision, weakness or a sudden severe headache. - Patient has a history of gout. -denies trauma Ddx considered but are not limited to cellulitis, septic joint, arthritis, ligamental or meniscus injury fracture, d/L, gout Vital signs: are WNL, pt. is afebrile H&PE are most consistent with acute gouty attack- infection of lower suspicion given consistency in symptoms to pt. previous episodes. ORDERS: none required at this time, the diagnosis is clinical ED INTERVENTIONS: - [place] 5mg PO -Prednisone PO -Colchicine PO -- pt. instructed on next dose in 1 hour. d/w pt. return immediately with s&S of GI bleed or worsening of his left knee symptoms indicating infection. Pt. given strict ED return precautions DISCHARGE: At this time pt. is stable for d/c to home. Will provide printed patient care instructions, and any necessary prescriptions. Care plan and follow up instructions have been discussed with the patient prior to discharge. Last Vital Signs Date Time Temp Pulse Resp B/P (MAP) Pulse Ox O2 Delivery O2 Flow Rate FiO2 01/06/20 12:04 98.2 79 18 137/79 99 Room Air Disposition: HOME, SELF-CARE Condition: Stable Scripts Hydrocodone Bit/Acetaminophen (HYDROCODON-ACETAMINOPHEN 5-300) 1 Each Tablet 1 EACH PO Q8HR, #9 TAB Prov: Kathryn Hahn 01/06/20 Prednisone* (PREDNISONE*) 20 Mg Tablet 20 MG ORAL DAILY for 4 Days, #4 TAB 0 Refills Prov: Kathryn Hahn 01/06/20 Colchicine (Colchicine) 0.6 Mg Capsule 0.6 MG PO ONCE, #1 CAP Prov: Kathryn Hahn 01/06/20 Referrals: [facility] Patient Instructions: Gout, [id number] Additional Instructions: Take medications as directed. *8 Do not drink alcohol, drive, or operate heavy machinery while taking [place] as this may cause drowsiness. Follow up with a Primary Care Provider in 3-5 days, even if your symptoms have resolved. Return sooner to ED if new symptoms occur, or current symptoms become worse. - Please note that this Emergency Department Report was dictated using [employer] credit head technology software, occasionally this can lead to erroneous entry secondary to interpretation by the dictation equipment. Kathryn Hahn January 06, 2020 13:57
[2020-01-06] MEDS ORDERED: HYDROCODON-ACE1 EA18 PO (14:02)
[2020-01-06] MEDS ORDERED: PREDNISONE20 MG ORAL (14:02)
[2020-01-06] MEDS ORDERED: COLCHICINE0.6 M1 PO (14:02)
--- NOTE | 2020-01-06 14:16 | NUR ---
ER DISCHARGE NOTE: Patient is cleared to be discharged per ERMD, pt is aox4, on room air, with stable vital signs. pt was given dc and prescription instructions, pt was able to verbalize understanding, pt id band removed. pt is able to ambulate with steady gait. pt took all belongings.
[2020-01-06 14:17] VITALS: BP 132/73
== END 2020-01-06 14:19 | disposition home or self-care (01) ==
LOC: EMR 12:46
DX: M10.9 Gout, unspecified (principal); M19.90 Unspecified osteoarthritis, unspecified site; Z90.49 Acquired absence of other specified parts of digestive tract
CPT/HCPCS: J7512; Z7502; 99283

== ENCOUNTER 2020-07-30 09:15 | Emergency (ER) | payer MEDICAID ==
[~2020-07-30] VITALS: Ht 175.3 cm; Wt 95.3 kg
[~2020-07-30 09:15] MED LIST changes: +HYDROCODON-ACE1 EA18 PO
--- NOTE | 2020-07-30 09:20 | NUR ---
ED Nurse Note: pt not in waiting room
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
[2020-07-30 09:30] VITALS: BP 130/90
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
[2020-07-30] MEDS ORDERED: HYDROcodone/Acetamin 7.5/325 tab ORAL ONE (09:45)
[2020-07-30] MEDS ORDERED: IBUPROFEN600 M1 ORAL (10:10)
[2020-07-30 10:30] VITALS: BP 132/90
--- NOTE | 2020-07-30 10:30 | NUR ---
ER DISCHARGE NOTE: Patient is cleared to be discharged per ERMD, pt is aox4, on room air, with stable vital signs. pt was given dc instructions, pt was able to verbalize understanding, pt id band removed without complications. pt is able to ambulate with steady gait. pt took all belongings.
--- NOTE | 2020-07-30 11:38 | Diagnostic Imaging Report ---
EXAM: X-RAY XRAY Shoulder Compl L CLINICAL HISTORY: Shoulder pain. COMPARISON: None FINDINGS: Total of 4 views of the shoulder were obtained. Alignment is anatomic. There is no fracture, bony lesions or erosions. Degenerative changes of the AC joint noted. Surrounding soft tissue is normal. IMPRESSION: MILD DEGENERATIVE CHANGES. NO ACUTE BONY ABNORMALITY.
== END 2020-07-30 10:30 | disposition home or self-care (01) ==
LOC: EMR 09:40
DX: S49.92XA Unspecified injury of left shoulder and upper arm, initial encounter (principal); V19.9XXA Pedal cyclist (driver) (passenger) injured in unspecified traffic accident, initial encounter; Y92.9 Unspecified place or not applicable; Z90.49 Acquired absence of other specified parts of digestive tract; M19.90 Unspecified osteoarthritis, unspecified site
CPT/HCPCS: 73030; Z7502; 99283